=== PATIENT | male | born 1985 | race Two or more races ===

== ENCOUNTER 2017-09-23 07:34 | Emergency (ER) | payer BC ==
[~2017-09-23] VITALS: Ht 165.1 cm; Wt 73.5 kg
[2017-09-23 07:58] VITALS: Ht 165.1 cm; Wt 73.5 kg
[2017-09-23 09:20] VITALS: BP 111/71
== END 2017-09-23 11:15 | disposition home or self-care (01) ==
LOC: ED 07:34
DX: S83.92XA Sprain of unspecified site of left knee, initial encounter (principal); X58.XXXA Exposure to other specified factors, initial encounter; Y93.01 Activity, walking, marching and hiking; Y92.89 Other specified places as the place of occurrence of the external cause; Y99.8 Other external cause status
CPT/HCPCS: J1100; J1885

== ENCOUNTER 2020-02-26 14:00 | Emergency (ER) | payer BC ==
[~2020-02-26] VITALS: Ht 167.6 cm; Wt 73.9 kg
[2020-02-26 14:08] VITALS: Ht 167.6 cm; Wt 73.9 kg
[2020-02-26 15:08] LABS: BASOPHIL % 0.3 % (0-2); PLATELET COUNT 210 x10^3mcL (130-400); RED CELL DISTRIBUTION WIDTH 12.2 % (11.5-14.5)
[2020-02-26 15:10] LABS: CARBON DIOXIDE 28.8 mmol/L (21-32); CHLORIDE SERUM 107 mmol/L (98-107); CREATININE SERUM 0.9 mg/dL (0.7-1.3); GFR1 > 60 mL/min; GLUCOSE SERUM 114 mg/dL (74-106); POTASSIUM SERUM 3.3 mmol/L (3.5-5.1); SODIUM SERUM 136 mmol/L (136-145)
[2020-02-26 15:14] LABS: ALBUMIN 4.2 g/dL (3.4-5.0); ALKALINE PHOSPHATASE 85 U/L (46-116); ALT/SGPT 26 U/L (16-63); AST/SGOT 17 U/L (15-37); BILIRUBIN TOTAL 0.47 mg/dL (0.20-1.00); CHOLESTEROL 184 mg/dL (<200); CHOLESTEROL/HDL RATIO 4.4; HDL CHOLESTEROL 42 mg/dL (40-60); LIPASE 123 IU/L (73-393); TOTAL PROTEIN, SERUM 7.3 g/dL (6.4-8.2); TRIGLYCERIDES 101 mg/dL (<150)
[2020-02-26 15:24] LABS: FREE T4 0.99 ng/dL (0.76-1.46); FREE THYROXINE INDEX 2.4 ug/dL (1.4-4.5); T4(THYROXINE) 7.1 ug/dL (4.7-13.3)
[2020-02-26 15:40] LABS: T3 TOTAL 1.04 ng/mL
[2020-02-26 16:06] VITALS: BP 132/70
== END 2020-02-26 16:06 | disposition home or self-care (01) ==
LOC: ED 14:00
PROVIDERS: Specialist
DX: R07.89 Other chest pain (principal); Z98.890 Other specified postprocedural states
CPT/HCPCS: 83880; 84439; Q0092